=== PATIENT | male | born 1940 | race Caucasian/White ===

== ENCOUNTER 2020-09-08 05:55 | Day surgery (SDC) | payer MEDICARE ==
[2020-09-08] MEDS ORDERED: Sodium Chloride 0.9% 10 ML Syringe FLUSH PRN (06:30)
[2020-09-08] MEDS ORDERED: Midazolam 1 MG/ML 2 ML SDV ONE (07:35)
[2020-09-08] MEDS ORDERED: Sodium Chloride 0.9% 10 ML ONE (07:36)
--- NOTE | 2020-09-08 10:40 | OR ---
DATE OF PROCEDURE: 09/08/2020 SURGEON: Clementina Hilliard MD We attempted cataract surgery of the right eye for this patient. Following sterile prep and drape of this patient, the patient is having difficulty focusing on the light. He had very large and continuous movements of his eye. He was unable to maintain a steady fixation on the microscope light. The patient was given a small dose of Versed to see if this would help calm down his eye movements. After waiting for several minutes, it was found that the patient was still not able to fixate on the microscope light. At this time, it was determined that it was unsafe to proceed with cataract surgery, and the procedure was aborted. Lid speculum and drapes were removed, and the patient was transported to recovery in excellent condition. Clementina Hilliard MD /[id number]
== END 2020-09-08 10:19 ==
LOC: JP.SDS 05:55
PROVIDERS: ATTEND Ophthalmology
DX: E11.36 Type 2 diabetes mellitus with diabetic cataract (principal); H26.9 Unspecified cataract; Z53.8 Procedure and treatment not carried out for other reasons
CPT/HCPCS: J2250